=== PATIENT | male | born 1975 | race Caucasian/White ===

== ENCOUNTER 2021-07-13 20:17 | Emergency (ER) | payer OTHER, SELFPAY ==
[2021-07-13 20:21] VITALS: BP 146/91; PULSE 96; RESP 20; TEMP 37.4; O2SAT 96
--- NOTE | 2021-07-13 21:49 | ED.GENADULT ---
HPI - General Adult General Chief complaint: Upper Respiratory Infection Stated complaint: cough, congestion, fever, body aches Time Seen by Provider: 07/13/21 21:21 History of Present Illness HPI narrative: Patient 46-year-old gentleman who presents the emergency department with chief complaint of generalized malaise body aches cough. The patient reports symptoms started Friday patient reports he took a home COVID test that was positive but then took another COVID test that was patient states he continues to feel horrible and states that he is never felt this bad the patient reports no shortness of breath reports he gets a little tired whenever he gets up and walks around. Patient denies vomiting denies diarrhea denies changes in mental status. Related Data Allergies Allergy/AdvReac Type Severity Reaction Status Date / Time No Known Allergies Allergy Verified 07/13/21 20:24 Review of Systems Review of Systems: A 10 system review of systems was completed on the patient and is negative except for what is stated in the HPI. Nursing and ancillary documentation was reviewed. PMFSH Comments Patient denies significant past medical history Social history the patient vapes Exam Narrative: GENERAL: Well-appearing, well-nourished, and in no acute distress. HEAD: Normocephalic, atraumatic. EYES: PERRLA and EOMI. ENT: Nares clear, no rhinorrhea or epistaxis. Mucous membranes moist. NECK: Supple. CHEST: Clear to auscultation. No respiratory distress. HEART: Regular rate and rhythm. No murmur heard. Normal peripheral pulses. ABDOMEN: Soft, nontender, nondistended, normal active bowel sounds. EXTREMITIES: Normal range of motion. No edema. SKIN: Warm, dry, no rash. NEURO: No focal deficits. Alert and oriented x3. PSYCH: Normal mood and affect. Course Course Emergency Course: The patient was ambulated in the emergency department showed no signs of hypoxia or tachypnea room air saturation stayed above 95%. Vital Signs Vital signs: Vital Signs Temperature 37.4 C 07/13/21 20: Pulse Rate 96 07/13/21 20:21 Respiratory Rate 20 07/13/21 20:21 Blood Pressure 146/91 H 07/13/21 20:21 Pulse Oximetry 96 07/13/21 20:21 Temperature 37.4 C 07/13/21 20:21 Pulse Rate 96 07/13/21 20:21 Respiratory Rate 20 07/13/21 20:21 Blood Pressure 146/91 H 07/13/21 20:21 Pulse Oximetry 96 07/13/21 20:21 Medical Decision Making Vital Signs Vital Signs: Vital Signs Temperature 37.4 C 07/13/21 20:21 Pulse Rate 96 07/13/21 20:21 Respiratory Rate 20 07/13/21 20:21 Blood Pressure 146/91 H 07/13/21 20:21 Pulse Oximetry 96 07/13/21 20:21 Temperature 37.4 C 07/13/21 20:21 Pulse Rate 96 07/13/21 20:21 Respiratory Rate 20 07/13/21 20:21 Blood Pressure 146/91 H 07/13/21 20:21 Pulse Oximetry 96 07/13/21 20:21 Discharge Plan Discharge Clinical Impression: Viral infection Upper respiratory infection Qualifiers: URI type: unspecified viral URI Qualified Code(s): J06.9 - Acute upper respiratory infection, unspecified Patient Disposition: Home, Self-Care Condition: Stable Instructions: Antibiotic Form, Upper Respiratory Infection (ED), Viral Syndrome (ED), COVID-19 (Coronavirus Disease 2019) (ED) Additional Instructions: A COVID-19 PCR test was sent today this will take several days to come back. It is presumed most likely were positive for COVID-19 since you have had a positive home test. Prescriptions: New benzonatate 200 mg capsule 200 mg PO TID PRN (Reason: cough) Qty: 21 RF: 0 albuterol sulfate 90 mcg/actuation HFA aerosol inhaler 2 puff inhalation QID PRN (Reason: shortness of breath or wheezing) Qty: 8.5 RF: 0 Follow-up/Referrals: PHYSICIAN,ROD PULLER AND COILER [Primary Care Provider] - Pavan García MD [Physician] - Time of Disposition: 21:52
[2021-07-13] MEDS: BENZONATATE 100 MG CAPSULE 200 MG PO (22:15)
[2021-07-13] MEDS: KETOROLAC 30 MG/ML VIAL (*BKC) IM (22:16)
[2021-07-13 22:18] VITALS: BP 124/91; PULSE 90; RESP 20; TEMP 37.4; O2SAT 97
[2021-07-14 23:20] LABS: SARS-CoV-2 RNA PCR Positive
== END 2021-07-13 22:31 | disposition home or self-care (01) ==
PROVIDERS: Emergency Provider Emergency Medicine
DX: U07.1 COVID-19 (principal); J06.9 Acute upper respiratory infection, unspecified; F17.290 Nicotine dependence, other tobacco product, uncomplicated
CPT/HCPCS: 96372; 99283; A9270; C9803; J1885; U0003; U0005

== ENCOUNTER 2021-07-20 23:48 | Inpatient (IN) | payer OTHER, SELFPAY ==
--- NOTE | ~2021-07-20 | XR_ITS ---
XR chest 1V portable DATE: 07/21/2021 00:23 INDICATION: Dyspnea. Covid infection. TECHNIQUE: Portable AP chest on 07/21/2021 at 0015 hours COMPARISON: None FINDINGS: There are patchy pulmonary infiltrates scattered throughout both lungs, consistent with vitaliy ateral effusions Covid pneumonia. Heart size appears normal. No pleural effusion or pneumothorax. IMPRESSION: Extensive patchy diffuse bilateral pulmonary infiltrates, consistent with Covid pneumonia Reviewed, dictated and finalized at location A. INE WASHER IMPRESSION: Extensive patchy diffuse bilateral pulmonary infiltrates, consisten t with Covid pneumonia
--- NOTE | ~2021-07-20 | CT_ITS ---
EXAMINATION: CTA chest PE protocol DATE: 07/22/2021 09:49 INDICATION: Hypoxia. Covid-positive. TECHNIQUE: Computed tomography angiography (CTA) of the chest was performed with 100 mL Omnipaque-350 intravenous contrast timed to evaluate the pulmonary arteries. Coronal maximum intensity projection 3D-reconstructions were created by the technologist. Automated exposure control and iterative reconst ruction technique were employed. Exam dose: 1061.30 mGy-cm total exam DLP. COMPARISON: 07/21/2021 CT pulmonary scan 07/21/2021 portable AP chest FINDINGS: There is diagnostic contrast enhancement of the pulmonary arteries and no evidence of pulmo nary embolism. No thoracic aortic aneurysm or dissection. Normal heart size. No pericardial or pleural effusion. There is minimal hilar and mediastinal lymph node prominence, likely reactive. There are extensive pa tchy consolidating infiltrates scattered throughout both lungs, increased since 07/21/2021. IMPRESSION: Increased bilateral pulmonary infiltrates since 07/21/2021 No evidence of pulmonary embolism Reviewed, dictated and finalized at Location [facility]. Reviewed, dictated and finalized at location A. T RAIL OPERATOR
--- NOTE | ~2021-07-20 | CT_ITS ---
EXAMINATION: CTA chest PE protocol DATE: 07/21/2021 01:34 INDICATION: Dyspnea, cough. Covid positive. TECHNIQUE: Computed tomography angiography (CTA) of the chest was performed with 100 mL Omnipaque-350 intravenous contrast timed to evaluate the pulmonary arteries. Coronal maximum intensity projection 3D-reconstructions were created by the technologist. Automated exposure control and iterative reconst ruction technique were employed. Exam dose: 1073.32 mGy-cm total exam DLP. COMPARISON: 07/21/2021 portable AP chest FINDINGS: There is diagnostic contrast enhancement of pulmonary embolism evidence of pulmonary emboli sm. No thoracic aortic aneurysm. Mild hilar and mediastinal lymph node prominence is likely reactive, secondary to extensive patchy in filtrates throughout both lungs, which are likely due to Covid pneumonia. Diffuse hepatic steatosis. Splenomegaly. Mild old compression fracture deformity of the superior vertebral endplate of T6. No suspicious osteolytic or osteoblastic lesions. IMPRESSION: Extensive bilateral pulmonary infiltrates throughout the lungs, likely due to Covid pneu monia No evidence of pulmonary embolism Hepatic steatosis, splenomegaly Reviewed, dictated and finalized at [facility]. Reviewed, dictated and finalized at location A. DRIVER ENGINEER IMPRESSION: Extensive bilateral pulmonary infiltrates throughout the lungs, li kj due to Covid pneumonia No evidence of pulmonary embolism Hepatic steatosis, splenomegaly
[2021-07-20 23:52] VITALS: BP 135/93; PULSE 107; RESP 17; TEMP 36.9; O2SAT 85
[2021-07-20 23:58] VITALS: O2SAT 91
[2021-07-21] VITALS (28 sets, daily range): BP systolic 103–143; BP diastolic 63–111; PULSE 62–106; RESP 17–29; TEMP 35.5–36.7; O2SAT 81–99; BMI 39.4
--- NOTE | 2021-07-21 00:08 | ECG_ITS ---
Measurements Intervals Mayer Rate: 100 P: 28 IA: 160 QRS: 10 QRSD: 102 T: 31 QT: 313 QTc: 404 Interpretive Statements SINUS TACHYCARDIA POOR R WAVE PROGRESSION, ANTERIOR LEADS CONSIDER INFERIOR INFARCT, AGE INDETERMINATE BASELINE ARTIFACT- I, II, III, AVR, AVF, V1-V6 ABNORMAL ECG Electronically Signed On 07-23-2021 7:56:00 URBAN DESIGN CONSULTANT by Kenji Mccabe D.O.
[2021-07-21 00:18] LABS: Basophils Percent Auto 0.4 % (0.2-1.2); Eosinophils Percent Auto 0.2 % (0-4.4); Hematocrit 42.5 % (42.0-52.0); Hemoglobin 14.7 g/dL (14.0-18.0); Immature Granulocyte Absolute 0.07 K/mm3 (0.00-0.031); Immature Granulocyte Percent A 1.3 % (0-0.5); Lymphocytes Absolute Auto 0.47 K/mm3 (0.9-3.2); Lymphocytes Percent Auto 8.7 % (18.3-44.2); Mean Corpuscular HGB Conc 34.6 g/dl (32-36); Mean Corpuscular Hemoglobin 31.9 pg (26-34); Mean Corpuscular Volume 92.2 fl (80-100); Mean Platelet Volume 9.6 fl (7.4-10.4); Monocytes Absolute Auto 0.5 K/mm3 (0.1-0.6); Monocytes Percent Auto 8.4 % (2.6-8.5); Neutrophils Absolute Auto 4.4 K/mm3 (1.3-6.7); Platelet Count Result 206 k/mm3 (150-375); Red Blood Count 4.61 M/mm3 (4.6-6.20); Red Cell Distribution Width 11.9 % (11.5-14.5); White Blood Count 5.4 K/mm3 (4.5-10.0)
--- NOTE | 2021-07-21 00:30 | ED.SOB ---
HPI - SOB/Dyspnea General Chief Complaint: Shortness of Breath/Dyspnea Stated Complaint: COVID+, sob Time Seen by Provider: 07/20/21 23:58 Source: RN notes reviewed History of Present Illness HPI Narrative: Patient presents emergency department from home for shortness of breath. Patient states he is positive for COVID-19 testing positive on the 14th states he has been progressively more short of breath associated with a cough is nonproductive states he is also had a decreased appetite is not anything over the past 2 days he denies any measured fevers chest pain abdominal pain nausea vomiting or any other symptoms. Patient states he was not vaccinated. Patient noted to be hypoxic on arrival to the ED and placed on 3 L nasal cannula Related Data Allergies Allergy/AdvReac Type Severity Reaction Status Date / Time No Known Allergies Allergy Verified 07/20/21 23:59 Review of Systems Review of Systems: Gen.: Denies fevers or chills ENT: Denies congestion Respiratory: See HPI CV: Denies chest pain or palpitations GI: Denies abdominal pain nausea, emesis or diarrhea Musculoskeletal: Denies back pain or muscle pain Neuro: Denies numbness, tingling, weakness or focal weakness Skin: Denies rash Except as documented, all other systems reviewed and negative PMFSH Past Medical History Medical History (Updated 07/21/21 @ 02:18 by Radu Odonnell DO) Patient denies significant medical history Social History Social History (Updated 07/21/21 @ 00:31 by Radu Odonnell DO) Smoking status: Never smoker Exam Narrative: APPEARANCE: No acute distress, nontoxic, resting in bed EYES: EOMI HEENT: Normocephalic, atraumatic, RESPIRATORY: No respiratory distress coarse breath sounds to the bilateral lung espinoza CARDIOVASCULAR: Regular rate and rhythm without murmurs rubs or gallops. ABDOMINAL: Soft, nontender, nondistended, no rebound or guarding MUSCULOSKELETAl: Moves all extremities. No clubbing, cyanosis or edema. NEURO: Awake and alert. Following commands, speech normal, no focal deficits SKIN:: Warm, dry. No rashes lesions or abrasions PSYCHIATRIC: Normal affect/mood, Course Course Emergency Course: Discussed with Dr. Donnelly agrees with admission. Request patient started on remdesivir Discussed with patient and family results of workup and diagnosis. Discussed need for admission. Patient and family understand and agree to current treatment plan Vital Signs Vital signs: Vital Signs Temperature 98.4 F 07/20/21 23:52 Pulse Rate 107 H 07/20/21 23:52 Respiratory Rate 17 07/20/21 23:52 Blood Pressure 135/93 H 07/20/21 23:52 Pulse Oximetry 85 L 07/20/21 23:52 Temperature 98.4 F 07/20/21 23:52 Pulse Rate 100 07/21/21 00:46 Respiratory Rate 25 H 07/21/21 00:46 Blood Pressure 136/111 H 07/21/21 00:46 Pulse Oximetry 91 07/20/21 23:58 MDM - SOB/Dyspnea Lab Data Result diagrams: 07/21/21 00:09 07/21/21 00:09 Labs: Lab Results 07/21/21 07/21/21 07/21/21 Range/Units 00:09 00:09 00:09 WBC 5.4 (4.5-10.0) K/mm3 RBC 4.61 (4.6-6.20) M/mm3 Hgb 14.7 (14.0-18.0) g/dL Hct 42.5 (42.0-52.0) % MCV 92.2 (80-100) fl MCH 31.9 (26-34) pg MCHC 34.6 (32-36) g/dl RDW 11.9 (11.5-14.5) % Plt Count 206 (150-375) k/mm3 MPV 9.6 (7.4-10.4) fl Immature Gran % (Auto) 1.3 H (0-0.5) % Neut % (Auto) 81.0 H (45.5-73.1) % Lymph % (Auto) 8.7 L (18.3-44.2) % Daggett % (Auto) 8.4 (2.6-8.5) % Eos % (Auto) 0.2 (0-4.4) % Baso % (Auto) 0.4 (0.2-1.2) % Lymph # (Auto) 0.47 L (0.9-3.2) K/mm3 Daggett # (Auto) 0.5 (0.1-0.6) K/mm3 Eos # (Auto) 0.0 (0-0.3) K/mm3 Baso # (Auto) 0.0 (0.0-0.1) K/mm3 Abs Immat Gran (auto) 0.07 H (0.00-0.031) K/mm3 Absolute Neuts (auto) 4.4 (1.3-6.7) K/mm3 Absolute Nucleated RBC 0.0 (0.0-0.012) K/mm3 Nucleated RBC % 0.0 (0.0-0.2) % PT 13.5 (11.1-14.7)
[2021-07-21 00:32] LABS: Prothrombin Time 13.5 Seconds (11.1-14.7)
[2021-07-21 00:33] LABS: Partial Thromboplastin Time 29.6 SECONDS (22.3-36.8)
[2021-07-21 00:35] LABS: D Dimer 0.71 ug/mL (<0.48)
[2021-07-21] MEDS: SODIUM CHLORIDE 0.9% IV 1,000 ML 999 ML IV CONT (00:38)
[2021-07-21 00:45] LABS: Alanine Aminotransferase 63 U/L (4-50); Alkaline Phosphatase 35 U/L (38-126); Anion Gap 10 mmol/L (8-16); Aspartate Amino Transferase 92 U/L (17-59); Bilirubin,Total 1.1 mg/dL (0.2-1.3); Blood Urea Nitrogen 25 mg/dL (9-20); CRP 5.2 mg/dL (<1.0); Calcium 8.3 mg/dL (8.4-10.2); Carbon Dioxide 26 mmol/L (22-30); Chloride 98 mmol/L (98-107); Estimated Glomerular Filt Rate 51; Glucose 117 mg/dL (65-110); Lactate Dehydrogenase 972 U/L (313-618); Potassium 3.9 mmol/L (3.4-5.0); Sodium 134 mmol/L (137-145)
[2021-07-21] MEDS: ALBUTEROL SULFATE (*SP) INHALER 1 PUFF (00:59)
[2021-07-21] MEDS: ALBUTEROL SULFATE (*SP) AEROSOL 1 PUFF 2 PUFF INHALATION (00:59)
[2021-07-21] MEDS: REMDESIVIR 200 MG/NS 250 ML 200 MG/250 ML BAG 250 MG IVPB (04:10)
--- NOTE | 2021-07-21 04:27 | PC.NURSE ---
This patient, Cristhian Vallejo III, was admitted to [facility] Surg Room 301-01. Patient/family oriented to hospital policies and general routines including ID bracelet, bed and alarms, visiting hours, pain management, procedures, bathroom and other care routines, personal items, smoking policy, room service/diet, and visiting hours. Information on how to activate the Rapid Response Team has been discussed. Patient/Family are encouraged to report perceived risks to care and to ask questions if they do not understand what they are told or what they should do.
[2021-07-21] MEDS: ENOXAPARIN 40 MG/0.4 ML SYRINGE SUB-Q (09:30)
--- NOTE | 2021-07-21 09:50 | PM.IMHP ---
H&P: HPI History of Present Illness Date/Time: 07/21/21 09:50 Chief Complaint: Shortness of Breath Narrative: Date of service: 07/21/2021 Cristhian Vallejo III is a 46-year-old male with a history of JULIUS, currently untreated, and GERD who presented to the emergency department on 07/21/2021 with complaints of shortness of breath ongoing for 1 week stating ?it is hard for me to breathe.? At home over 10 days ago he had been feeling general malaise and decided to go home COVID test which was positive. On 07/13/2019 to he began feeling much worse and proceeded to the emergency department for evaluation. At that time he had a positive COVID PCR test. He was not hypoxic at that time was sent home with albuterol inhaler and antitussives. He was not able to fill his inhaler for several days due to the cost. When he eventually did feel this he did not find it to be very helpful. He had continued to decline with increased shortness of breath on lesser and lesser exertion to the point where he could not do any of his normal task and was laying in bed and ?sleeping all day.? He decided to seek emergency care again due to his increased shortness of breath, stating that his nagged him until he came in. On presentation to the emergency department, he was mildly tachypneic, his blood pressure was elevated, he was afebrile, CBC unremarkable, BMP with elevated BUN and creatinine, CTA showed extensive bilateral pulmonary infiltrates throughout the bilateral lungs with no evidence of PE. At this time his main complaint is persistent shortness of breath. He also endorses a cough that he cannot describe reports that is nonproductive approved he has had very poor appetite, stating that nothing is appealing to him and he is had fairly anything to eat over the past 2 weeks. Review of Systems Review of Systems: All systems reviewed with pertinent positives and negatives as per HPI. Additionally, patient denies nausea or vomiting. He endorses subjective fevers at home and states that he took his temperature it was 99.8?. He denies chills. His sense of taste and smell is intact. He denies feeling weak. No dizziness or lightheadedness. Denies dysuria or hematuria. He had 1-2 episodes of diarrhea earlier in the week but this has resolved. He denies chest pain. Denies headaches or body aches. He reports that his and 2 sons have also tested positive for COVID. He has not been vaccinated for COVID-19. [facility] Past Medical History Medical History (Updated 07/21/21 @ 09:58 by Annetta Flynn PA-C) GERD (gastroesophageal reflux disease) JULIUS (obstructive sleep apnea) Patient denies significant medical history Family History Family History (Updated 07/21/21 @ 09:58 by Annetta Flynn PA-C) Father Diabetes mellitus Social History Social History (Updated 07/21/21 @ 10:01 by Annetta Flynn PA-C) Social History: The patient lives at home with his and 2 sons. He is independent in his daily activities. 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 He recently established care with a PCP though he cannot recall with whom. Dr. Lofton is listed as his PCP. He designates his , Emerita, as his surrogate decision maker. He would like to be a full code. Smoking packs per day: 1 Smoking cigarettes per day: 20.0 Years smoked: 17 Smoking pack-years: 17.00 Smoking status: Former smoker Tobacco type: cigarettes Alcohol use details: 1 alcoholic drink every 6 months Substance use: never Substance use type: does not use Living arrangements: with family Spiritual care concerns: No Meds Home Medications and Allergies Home Medications Medication Instructions Recorded Confirmed Type albuterol sulfate 2 puff INHALATION QID PRN #8.5 g 07/13/21 07/21/21 Rx benzonatate 200 mg PO TID PRN #21 cap 07/13/21 07/21/21 Rx Allergies Allergy/AdvReac Type Severity Reaction Status Date / Time No Known Allergies Allergy Verified
[2021-07-21] MEDS: guaiFENesin 12 HR 600 MG TABCR PO ×2 (14:36→20:52)
[2021-07-21] MEDS: FAMOTIDINE 20 MG TABLET PO ×2 (14:36→20:52)
[2021-07-21 23:35] LABS: Alveolar/Arterial O2 Gradient 630.4 mmHg; Base Excess ABG 2.1 mEq/l (+/-2.0); Carboxyhemoglobin 0.1 % THb (0-2.0); Fractional Inspired Oxygen 100 %; HCO3 ABG 25.5 mEq/l (22.0-26.0); Methemoglobin ABG 0.2 %THb (0-1.5); PCO2 ABG 36.1 mmHg (35.0-45.0); PO2 FiO2 Ratio Arterial Blood 0.47 %; Reduced Hemoglobin 17.8 %THb (0-5.0); Total Hemoglobin 13.9 g/dL (12.0-18.0); pH ABG 7.467 (7.350-7.450)
[2021-07-21 23:40] LABS: PO2 ABG 46.5 mmHg (80.0-100.0)
[2021-07-21 23:41] LABS: Device HIGH FLOW NASAL CANN; Modified Allen's Test Pass; Oxygen Saturation ABG 85.3 % (95.0-100.0); Oxyhemoglobin 81.9 % THb (90.0-100.0); Site Drawn RIGHT RADIAL
[2021-07-22] VITALS (21 sets, daily range): BP systolic 93–129; BP diastolic 45–80; PULSE 53–83; RESP 18–30; TEMP 36.5–36.9; O2SAT 91–97
[2021-07-22] MEDS: BARICITINIB 2 MG TABLET PO ×3 (01:04→13:34)
--- NOTE | 2021-07-22 01:37 | PC.NURSE ---
This patient, Cristhian Vallejo III, was received from [facility] on 07/22/21 at 0033. Patient oriented to unit policies and routines
--- NOTE | 2021-07-22 01:39 | PC.NURSE ---
Emerita Vallejo () notified of patient's admission to the IMU. I explained the current Airvo settings of 60L with 90%. We also discussed oxygen saturation and what it means. Patient is currently 95% on these settings. All questions answered. I advised her that I will call her if her 's condition deteriorates through the night. We also discussed other options including adding a non-rebreather, BIPAP, and intubation should his condition get worse. states understanding.
--- NOTE | 2021-07-22 01:45 | PC.NURSE ---
I called Aruna Vallejo (Mother) and updated her with the same things Emerita () and I discussed. She states understanding. I added her to the contact list and advised her we will call her should her son's condition deteriorate.
[2021-07-22 06:35] LABS: INR 1.1; Prothrombin Time 14.1 Seconds (11.1-14.7)
[2021-07-22 06:39] LABS: Alanine Aminotransferase 62 U/L (4-50); Albumin Level 3.6 g/dL (3.5-5.1); Alkaline Phosphatase 30 U/L (38-126); Anion Gap 6 mmol/L (8-16); Aspartate Amino Transferase 64 U/L (17-59); Bilirubin,Total 0.9 mg/dL (0.2-1.3); Blood Urea Nitrogen 25 mg/dL (9-20); Calcium 8.1 mg/dL (8.4-10.2); Carbon Dioxide 28 mmol/L (22-30); Chloride 102 mmol/L (98-107); Estimated CRCL calculation 110 ml/min; Estimated Glomerular Filt Rate > 60; Glucose 138 mg/dL (65-110); Potassium 4.5 mmol/L (3.4-5.0); Sodium 136 mmol/L (137-145)
[2021-07-22] MEDS: ENOXAPARIN 40 MG/0.4 ML SYRINGE SUB-Q (10:03)
[2021-07-22] MEDS: guaiFENesin 12 HR 600 MG TABCR PO ×2 (10:04→20:40)
[2021-07-22] MEDS: FAMOTIDINE 20 MG TABLET PO ×2 (10:04→20:40)
[2021-07-22 10:10] LABS: Basophils Percent Auto 0.2 % (0.2-1.2); Hematocrit 40.6 % (42.0-52.0); Hemoglobin 13.5 g/dL (14.0-18.0); Immature Granulocyte Absolute 0.05 K/mm3 (0.00-0.031); Immature Granulocyte Percent A 1.2 % (0-0.5); Lymphocytes Absolute Auto 0.64 K/mm3 (0.9-3.2); Lymphocytes Percent Auto 15.6 % (18.3-44.2); Mean Corpuscular HGB Conc 33.3 g/dl (32-36); Mean Corpuscular Hemoglobin 31.3 pg (26-34); Mean Platelet Volume 9.5 fl (7.4-10.4); Monocytes Absolute Auto 0.3 K/mm3 (0.1-0.6); Monocytes Percent Auto 7.8 % (2.6-8.5); Neutrophils Absolute Auto 3.1 K/mm3 (1.3-6.7); Neutrophils Percent Auto 75.2 % (45.5-73.1); Platelet Count Result 228 k/mm3 (150-375); Red Blood Count 4.32 M/mm3 (4.6-6.20); Red Cell Distribution Width 11.9 % (11.5-14.5); White Blood Count 4.1 K/mm3 (4.5-10.0)
[2021-07-22 10:34] LABS: CRP 3.4 mg/dL (<1.0)
[2021-07-22 11:59] LABS: Lactate Dehydrogenase 822 U/L (313-618)
--- NOTE | 2021-07-22 12:24 | PM.IMPN ---
Progress Note: A&P Assessment and Plan (1) Acute respiratory failure with hypoxia: Code(s): J96.01 - Acute respiratory failure with hypoxia Status: Acute Assessment and Plan: Secondary to COVID-19. PE ruled out on CTA. He had significantly increased oxygen demand overnight. Now requiring Airvo 60 L/min Goal O2 sats 90% or above. Wean to goal During my encounter today while the patient was resting, talking, and shifting around in bed, his sats remained between 88-96%. Repeat CTA given acute change which showed increased bilateral pulmonary infiltrates, negative for PE Patient is agreeable to intubation should this become required (2) COVID-19: Code(s): U07.1 - COVID-19 Status: Acute Assessment and Plan: Symptom onset 07/09/2021 with positive PCR on 07/13/2021. CXR and CTA with extensive bilateral infiltrates Continue isolation precautions Continue dexamethasone and remdesivir #2 today. Monitor LFTs. Given increased oxygen requirements, he has been started on baricitinib 4 mg daily for up to 14 days Supportive care to include bronchodilators, expectorants, incentive spirometry, antipyretics Supplemental O2 as above Monitor inflammatory markers, trending down Patient has not been vaccinated for COVID-19. States he would now like to get vaccinated. Follow-up outpatient for vaccine in 90 days (3) Acute renal insufficiency: Code(s): N28.9 - Disorder of kidney and ureter, unspecified Status: Acute Assessment and Plan: Likely pre renal given his poor oral intake Creatinine has normalized at 1.2 today following IV fluids. Continue to encourage oral intake No prior labs to establish baseline Monitor renal function closely. Renally dose medications and avoid nephrotoxins (4) JULIUS (obstructive sleep apnea): Code(s): G47.33 - Obstructive sleep apnea (adult) (pediatric) Status: Acute Assessment and Plan: History of untreated JULIUS He is scheduled for a sleep study this upcoming week to obtain home CPAP Continue outpatient follow up Subjective Date/time seen: 07/22/21 12:24 Interval history: Date of service: 07/22/2021 Cristhian Vallejo III is a 46-year-old male with a history of JULIUS, currently untreated, and GERD who is seen in follow-up for COVID-19 pneumonia. He feels okay today. He did state he feels significantly better than he had been feeling at home. He denies any significant shortness of breath. He does have cough productive of yellowish sputum. He no chest pain. He has been able to get up and transfer to the bedside commode and he denies significant VIEIRA. Slept well last night. Denies nausea, vomiting, fever, chills. No abdominal pain. He is very eager to return home. I explained to him that he has persistently increased oxygen requirements and that needs to be better controlled before he can go home. He understands but continues to reiterate his desire to go home. Review of Systems Review of Systems: All systems reviewed & are unremarkable except as noted in HPI and below Exam Narrative: Mr. Vallejo is a well-nourished, well-appearing 46-year-old male who is lying semi recumbent in bed. He appears comfortable and is in NARD. Neuro: awake, alert and oriented x4, speech clear, no focal neuro deficits noted HEENMT: normocephalic, atraumatic, EOMI, sclerae anicteric Neck: supple, no lymphadenopathy Respiratory: Diminished breath sounds bilaterally without crackles, rhonchi, or wheezes, nonlabored breathing Cardio: regular rate, regular rhythm with S1-S2 Abdomen: nondistended, normoactive bowel sounds, soft, nontender to palpation Extremities: no edema, erythema, or tenderness to palpation, DP pulses 2+ bilaterally Skin: no rashes or lesions, warm and dry Psych: appropriate mood and affect, judgment and insight intact Objective Data Vital Signs Vital Signs: Vital Signs - 24 hr 07/21/21 15:47 07/21/21 20:
[2021-07-22] MEDS: REMDESIVIR 100 MG/NS 250 ML 100 MG/250 ML BAG 250 MG IVPB (13:33)
[2021-07-23] VITALS (18 sets, daily range): BP systolic 89–117; BP diastolic 51–84; PULSE 50–65; RESP 18–24; TEMP 36.1–37.1; O2SAT 92–100
[2021-07-23 05:51] LABS: Basophils Percent Auto 0.2 % (0.2-1.2); Eosinophils Percent Auto 0.4 % (0-4.4); Hematocrit 37.7 % (42.0-52.0); Hemoglobin 12.6 g/dL (14.0-18.0); Immature Granulocyte Absolute 0.09 K/mm3 (0.00-0.031); Immature Granulocyte Percent A 1.6 % (0-0.5); Lymphocytes Absolute Auto 0.94 K/mm3 (0.9-3.2); Lymphocytes Percent Auto 17.1 % (18.3-44.2); Mean Corpuscular HGB Conc 33.4 g/dl (32-36); Mean Corpuscular Hemoglobin 31.3 pg (26-34); Mean Corpuscular Volume 93.8 fl (80-100); Mean Platelet Volume 9.7 fl (7.4-10.4); Monocytes Absolute Auto 0.4 K/mm3 (0.1-0.6); Monocytes Percent Auto 7.3 % (2.6-8.5); Neutrophils Percent Auto 73.4 % (45.5-73.1); Platelet Count Result 215 k/mm3 (150-375); Red Blood Count 4.02 M/mm3 (4.6-6.20); Red Cell Distribution Width 11.8 % (11.5-14.5); White Blood Count 5.5 K/mm3 (4.5-10.0)
[2021-07-23 06:10] LABS: INR 1.1; Prothrombin Time 14.2 Seconds (11.1-14.7)
[2021-07-23 06:13] LABS: Alanine Aminotransferase 59 U/L (4-50); Albumin Level 3.5 g/dL (3.5-5.1); Alkaline Phosphatase 30 U/L (38-126); Anion Gap 6 mmol/L (8-16); Aspartate Amino Transferase 56 U/L (17-59); Bilirubin,Total 0.7 mg/dL (0.2-1.3); Blood Urea Nitrogen 28 mg/dL (9-20); CRP 1.8 mg/dL (<1.0); Calcium 7.9 mg/dL (8.4-10.2); Carbon Dioxide 30 mmol/L (22-30); Chloride 102 mmol/L (98-107); Estimated CRCL calculation 110 ml/min; Estimated Glomerular Filt Rate > 60; Glucose 103 mg/dL (65-110); Potassium 3.8 mmol/L (3.4-5.0); Sodium 138 mmol/L (137-145)
[2021-07-23] MEDS: ENOXAPARIN 40 MG/0.4 ML SYRINGE SUB-Q (09:11)
[2021-07-23] MEDS: guaiFENesin 12 HR 600 MG TABCR PO ×2 (09:11→20:07)
[2021-07-23] MEDS: FAMOTIDINE 20 MG TABLET PO ×2 (09:11→20:07)
[2021-07-23] MEDS: REMDESIVIR 100 MG/NS 250 ML 100 MG/250 ML BAG 250 MG IVPB (11:29)
[2021-07-23] MEDS: BARICITINIB 2 MG TABLET 4 MG PO (11:30)
--- NOTE | 2021-07-23 17:10 | PM.IMPN ---
Progress Note: A&P Assessment and Plan (1) Acute respiratory failure with hypoxia: Code(s): J96.01 - Acute respiratory failure with hypoxia Status: Acute Assessment and Plan: Secondary to COVID-19. PE ruled out on CTA. Currently requriing 60 L/min on Airvo. Maintaining adequate O2 sats. Goal O2 sats 90% or above. Wean to goal CT showed increased bilateral pulmonary infiltrates Patient is agreeable to intubation should this become required (2) COVID-19: Code(s): U07.1 - COVID-19 Status: Acute Assessment and Plan: Symptom onset 07/09/2021 with positive PCR on 07/13/2021. CXR and CTA with extensive bilateral infiltrates Continue isolation precautions Continue dexamethasone and remdesivir #3 today. Monitor LFTs. Started on Baricitinib 07/22 due to increased O2 requirements. Continue 4 mg daily for up to 14 days Supportive care to include bronchodilators, expectorants, incentive spirometry, antipyretics Supplemental O2 as above Monitor inflammatory markers intermittently Patient has not been vaccinated for COVID-19. States he would now like to get vaccinated. Follow-up outpatient for vaccine in 90 days (3) Acute renal insufficiency: Code(s): N28.9 - Disorder of kidney and ureter, unspecified Status: Acute Assessment and Plan: Likely pre renal given his poor oral intake Creatinine normalized at 1.2 following IV fluids. IV fluids discontinued. Encourage PO intake No prior labs to establish baseline Monitor renal function closely. Renally dose medications and avoid nephrotoxins (4) JULIUS (obstructive sleep apnea): Code(s): G47.33 - Obstructive sleep apnea (adult) (pediatric) Status: Acute Assessment and Plan: History of untreated JULIUS He is scheduled for a sleep study this upcoming week to obtain home CPAP which will now be rescheduled given acute illness Continue outpatient follow up Subjective Date/time seen: 07/23/21 17:10 Interval history: Date of service: 07/23/2021 Cristhian Vallejo III is a 46-year-old male with a history of JULIUS, currently untreated, and GERD who is seen in follow-up for COVID-19 pneumonia. He feels well today. He reports he is breathing well. Denies VIEIRA, although he has not been having much activity today. He reports cough productive thick, yellow sputum. Denies nausea,, fever, chills. No dizziness or lightheadedness. He reports regular bowel movements. Denies urinary symptoms. No chest pain or palpitations. He reports he has been sleeping quite a bit but states he is forcing himself to sleep because each time he sleeps he is closer to going home. He does not feel particularly fatigued. Review of Systems Review of Systems: All systems reviewed & are unremarkable except as noted in HPI and below Exam Narrative: Mr. Vallejo is a well-nourished, well-appearing 46-year-old male who is lying semi recumbent in bed. He appears comfortable and is in NARD. Neuro: awake, alert and oriented x4, speech clear, no focal neuro deficits noted HEENMT: normocephalic, atraumatic, EOMI, sclerae anicteric Neck: supple, no lymphadenopathy Respiratory: Diminished breath sounds bilaterally, nonlabored breathing Cardio: regular rate, regular rhythm with S1-S2 Abdomen: nondistended, normoactive bowel sounds, soft, nontender to palpation Extremities: no edema, erythema, or tenderness to palpation, DP pulses 2+ bilaterally Skin: no rashes or lesions, warm and dry Psych: appropriate mood and affect, judgment and insight intact Objective Data Vital Signs Vital Signs: Vital Signs - 24 hr 07/22/21 18:00 07/22/21 20:00 07/22/21 20:22 Temperature 97.9 F Pulse Rate 66 70 Respiratory Rate 20 Blood Pressure 125/80 Pulse Oximetry 96 93 07/22/21 21:49 07/23/21 00:00 07/23/21 02:00 Temperature 98.4 F Pulse Rate 66 50 L 58 L Respiratory Rate 24 H Blood Pressure 111/73 Pulse Oximetry 95 0
[2021-07-24] VITALS (14 sets, daily range): BP systolic 90–110; BP diastolic 41–75; PULSE 51–65; RESP 16–20; TEMP 35.9–36.7; O2SAT 92–100
[2021-07-24 08:14] LABS: Basophils Percent Auto 0.5 % (0.2-1.2); Eosinophils Absolute Auto 0.1 K/mm3 (0-0.3); Hematocrit 38.4 % (42.0-52.0); Hemoglobin 12.8 g/dL (14.0-18.0); Immature Granulocyte Absolute 0.26 K/mm3 (0.00-0.031); Immature Granulocyte Percent A 4.2 % (0-0.5); Lymphocytes Absolute Auto 1.15 K/mm3 (0.9-3.2); Lymphocytes Percent Auto 18.8 % (18.3-44.2); Mean Corpuscular HGB Conc 33.3 g/dl (32-36); Mean Corpuscular Hemoglobin 31.6 pg (26-34); Mean Corpuscular Volume 94.8 fl (80-100); Mean Platelet Volume 9.7 fl (7.4-10.4); Monocytes Absolute Auto 0.6 K/mm3 (0.1-0.6); Neutrophils Absolute Auto 4.1 K/mm3 (1.3-6.7); Neutrophils Percent Auto 66.5 % (45.5-73.1); Platelet Count Result 219 k/mm3 (150-375); Red Blood Count 4.05 M/mm3 (4.6-6.20); Red Cell Distribution Width 11.9 % (11.5-14.5); White Blood Count 6.1 K/mm3 (4.5-10.0)
[2021-07-24 08:24] LABS: INR 1.1; Prothrombin Time 13.6 Seconds (11.1-14.7)
[2021-07-24 08:26] LABS: Alanine Aminotransferase 66 U/L (4-50); Albumin Level 3.2 g/dL (3.5-5.1); Alkaline Phosphatase 30 U/L (38-126); Anion Gap 9 mmol/L (8-16); Aspartate Amino Transferase 56 U/L (17-59); Bilirubin,Total 0.5 mg/dL (0.2-1.3); Blood Urea Nitrogen 27 mg/dL (9-20); Calcium 7.7 mg/dL (8.4-10.2); Carbon Dioxide 26 mmol/L (22-30); Chloride 103 mmol/L (98-107); Estimated CRCL calculation 110 ml/min; Estimated Glomerular Filt Rate > 60; Glucose 91 mg/dL (65-110); Potassium 3.9 mmol/L (3.4-5.0); Sodium 138 mmol/L (137-145)
[2021-07-24] MEDS: guaiFENesin 12 HR 600 MG TABCR PO ×2 (10:15→21:03)
[2021-07-24] MEDS: ENOXAPARIN 40 MG/0.4 ML SYRINGE SUB-Q (10:15)
[2021-07-24] MEDS: FAMOTIDINE 20 MG TABLET PO ×2 (10:15→21:03)
[2021-07-24] MEDS: REMDESIVIR 100 MG/NS 250 ML 100 MG/250 ML BAG 250 MG IVPB (10:16)
[2021-07-24] MEDS: BARICITINIB 2 MG TABLET 4 MG PO (10:16)
--- NOTE | 2021-07-24 16:01 | PM.IMPN ---
Progress Note: A&P Assessment and Plan (1) Acute respiratory failure with hypoxia: Code(s): J96.01 - Acute respiratory failure with hypoxia Status: Acute Assessment and Plan: Secondary to COVID-19. PE ruled out on CTA. Currently requriing 60 L/min on Airvo. Maintaining adequate O2 sats. Goal O2 sats 90% or above. Wean to goal CT showed increased bilateral pulmonary infiltrates Patient is agreeable to intubation should this become required (2) COVID-19: Code(s): U07.1 - COVID-19 Status: Acute Assessment and Plan: Symptom onset 07/09/2021 with positive PCR on 07/13/2021. CXR and CTA with extensive bilateral infiltrates Continue isolation precautions Continue dexamethasone and remdesivir #4 today. Monitor LFTs. Started on Baricitinib 07/22 due to increased O2 requirements. Continue 4 mg daily for up to 14 days Supportive care to include bronchodilators, expectorants, incentive spirometry, antipyretics Supplemental O2 as above Monitor inflammatory markers intermittently Patient has not been vaccinated for COVID-19. States he would now like to get vaccinated. Follow-up outpatient for vaccine in 90 days (3) Acute renal insufficiency: Code(s): N28.9 - Disorder of kidney and ureter, unspecified Status: Acute Assessment and Plan: Likely pre renal given his poor oral intake Creatinine normalized at 1.2 following IV fluids. IV fluids discontinued. Encourage PO intake. 1.1 today No prior labs to establish baseline Monitor renal function closely. Renally dose medications and avoid nephrotoxins (4) JULIUS (obstructive sleep apnea): Code(s): G47.33 - Obstructive sleep apnea (adult) (pediatric) Status: Acute Assessment and Plan: History of untreated JULIUS He is scheduled for a sleep study this upcoming week to obtain home CPAP which will now be rescheduled given acute illness Continue outpatient follow up Subjective Date/time seen: 07/24/21 16:01 Interval history: Cristhian Vallejo III is a 46-year-old male with a history of JULIUS, currently untreated, and GERD who is seen in follow-up for COVID-19 pneumonia. Pt states he feels well. Still having productive cough with yellow sputum. No fevers. Denies sob despite still being on airvo. Requesting to be discharged. Very anxious to go home. Review of Systems Review of Systems: General: Denies fevers Eyes: Denies vision changes ENT: Denies nasal congestion or sore throat Respiratory: + cough, denies shortness of breath Cardiovascular: Denies chest pain or lower extremity edema Gastrointestinal: Denies abdominal pain, vomiting, or diarrhea Genitourinary: Denies dysuria Musculoskeletal: Denies back pain Neurological: Denies headache or motor weakness Integumentary: Denies rash Exam Narrative: Mr. Vallejo is a well-nourished, well-appearing 46-year-old male who is lying semi recumbent in bed. He appears comfortable and is in NARD. Neuro: awake, alert and oriented x4, speech clear, no focal neuro deficits noted HEENMT: normocephalic, atraumatic, EOMI, sclerae anicteric Neck: supple, no lymphadenopathy Respiratory: Diminished breath sounds bilaterally, nonlabored breathing, airvo 60 L Cardio: regular rate, regular rhythm with S1-S2 Abdomen: nondistended, normoactive bowel sounds, soft, nontender to palpation Extremities: no edema, erythema, or tenderness to palpation, DP pulses 2+ bilaterally Skin: no rashes or lesions, warm and dry Psych: anxious Objective Data Vital Signs Vital Signs: Vital Signs - 24 hr 07/23/21 18:00 07/23/21 20:00 07/23/21 20:16 Temperature 97.8 F Pulse Rate 60 65 Respiratory Rate 22 H Blood Pressure 100/68 Pulse Oximetry 92 92 07/23/21 22:00 07/23/21 23:14 07/23/21 23:34 Temperature 97.7 F Pulse Rate 60 60 54 L Respiratory Rate 22 H 20 Blood Pressure 117/73 Pulse Oximetry 92 97 07/23/21 23:42 07/24/21 02:00
[2021-07-25] VITALS (14 sets, daily range): BP systolic 101–143; BP diastolic 55–85; PULSE 51–89; RESP 16–26; TEMP 36.2–36.6; O2SAT 94–99
--- NOTE | 2021-07-25 07:39 | PM.IMPN ---
Progress Note: A&P Assessment and Plan (1) Acute respiratory failure with hypoxia: Code(s): J96.01 - Acute respiratory failure with hypoxia Status: Acute Assessment and Plan: Secondary to COVID-19. PE ruled out on CTA. Currently requriing 60 L/min on Airvo. Maintaining adequate O2 sats. Goal O2 sats 90% or above. Wean to goal CT showed increased bilateral pulmonary infiltrates Patient is agreeable to intubation should this become necessary (2) COVID-19: Code(s): U07.1 - COVID-19 Status: Acute Assessment and Plan: Symptom onset 07/09/2021 with positive PCR on 07/13/2021. CXR and CTA with extensive bilateral infiltrates Continue isolation precautions Continue dexamethasone and remdesivir #5 today. Monitor LFTs. Will extend remdesivir for an additional 5 days Started on Baricitinib 07/22 due to increased O2 requirements. Continue 4 mg daily for up to 14 days Supportive care to include bronchodilators, expectorants, incentive spirometry, antipyretics Supplemental O2 as above Monitor inflammatory markers intermittently Patient has not been vaccinated for COVID-19. States he would now like to get vaccinated. Follow-up outpatient for vaccine in 90 days (3) Acute renal insufficiency: Code(s): N28.9 - Disorder of kidney and ureter, unspecified Status: Acute Assessment and Plan: Likely pre renal given his poor oral intake Creatinine normalized at 1.2 following IV fluids. IV fluids discontinued. Encourage PO intake. Cr levels pending this morning No prior labs to establish baseline Monitor renal function closely. Renally dose medications and avoid nephrotoxins (4) JULIUS (obstructive sleep apnea): Code(s): G47.33 - Obstructive sleep apnea (adult) (pediatric) Status: Acute Assessment and Plan: History of untreated JULIUS He is scheduled for a sleep study this upcoming week to obtain home CPAP which will now be rescheduled given acute illness Continue outpatient follow up Subjective Date/time seen: 07/25/21 07:39 Interval history: Date of service: 07/25/2021 Cristhian Vallejo III is a 46-year-old male with a history of JULIUS, currently untreated, and GERD who is seen in follow-up for COVID-19 pneumonia. Patient states he feels well today. He denies shortness of breath despite being on Airvo. Denies cough. Reports overall significant improvement and wants to go home. Discussed he has high oxygen requirements and will need time prior to discharge home. He denies nausea, vomiting, fever, chills, dizziness, lightheadedness. He has been getting up and walking around as much as he is able to while on oxygen. He wants to get up and walk around the halls, I discussed with him is isolation precautions. He has been eating well. Denies chest pain. He reports sleeping well. No additional concerns. Review of Systems Review of Systems: All systems reviewed & are unremarkable except as noted in HPI and below Exam Narrative: Mr. Vallejo is a well-nourished, well-appearing 46-year-old male who is lying semi recumbent in bed. He appears comfortable and is in NARD. Neuro: awake, alert and oriented x4, speech clear, no focal neuro deficits noted HEENMT: normocephalic, atraumatic, EOMI, sclerae anicteric Neck: supple, no lymphadenopathy Respiratory: Diminished breath sounds bilaterally, nonlabored breathing, airvo 60 L Cardio: regular rate, regular rhythm with S1-S2 Abdomen: nondistended, normoactive bowel sounds, soft, nontender to palpation Extremities: no edema, erythema, or tenderness to palpation, DP pulses 2+ bilaterally Skin: no rashes or lesions, warm and dry Psych: Appropriate mood and affect, judgment and insight intact Objective Data Vital Signs Vital Signs: Vital Signs - 24 hr 07/24/21 08:00 07/24/21 08:20 07/24/21 10:00 Temperature 96.7 F L Pulse Rate 54 L 62 Respiratory Rate 16 Blood Pressure 90/41 L Pulse Ox
[2021-07-25 08:12] LABS: Basophils Percent Auto 0.6 % (0.2-1.2); Eosinophils Absolute Auto 0.1 K/mm3 (0-0.3); Eosinophils Percent Auto 1.5 % (0-4.4); Hematocrit 41.2 % (42.0-52.0); Hemoglobin 13.8 g/dL (14.0-18.0); Immature Granulocyte Absolute 0.29 K/mm3 (0.00-0.031); Immature Granulocyte Percent A 4.4 % (0-0.5); Lymphocytes Absolute Auto 1.21 K/mm3 (0.9-3.2); Lymphocytes Percent Auto 18.3 % (18.3-44.2); Mean Corpuscular HGB Conc 33.5 g/dl (32-36); Mean Corpuscular Hemoglobin 32.1 pg (26-34); Mean Corpuscular Volume 95.8 fl (80-100); Mean Platelet Volume 9.6 fl (7.4-10.4); Monocytes Absolute Auto 0.5 K/mm3 (0.1-0.6); Monocytes Percent Auto 7.4 % (2.6-8.5); Neutrophils Absolute Auto 4.5 K/mm3 (1.3-6.7); Neutrophils Percent Auto 67.8 % (45.5-73.1); Platelet Count Result 226 k/mm3 (150-375); White Blood Count 6.6 K/mm3 (4.5-10.0)
[2021-07-25 08:24] LABS: INR 1.1; Prothrombin Time 13.9 Seconds (11.1-14.7)
[2021-07-25 08:32] LABS: Alanine Aminotransferase 91 U/L (4-50); Albumin Level 3.3 g/dL (3.5-5.1); Alkaline Phosphatase 32 U/L (38-126); Anion Gap 6 mmol/L (8-16); Aspartate Amino Transferase 71 U/L (17-59); Bilirubin,Total 0.7 mg/dL (0.2-1.3); Blood Urea Nitrogen 24 mg/dL (9-20); Carbon Dioxide 27 mmol/L (22-30); Chloride 103 mmol/L (98-107); Estimated CRCL calculation 102 ml/min; Estimated Glomerular Filt Rate 60; Glucose 99 mg/dL (65-110); Potassium 4.2 mmol/L (3.4-5.0); Sodium 136 mmol/L (137-145)
[2021-07-25] MEDS: REMDESIVIR 100 MG/NS 250 ML 100 MG/250 ML BAG 250 MG IVPB (09:38)
[2021-07-25] MEDS: guaiFENesin 12 HR 600 MG TABCR PO ×2 (09:43→21:12)
[2021-07-25] MEDS: FAMOTIDINE 20 MG TABLET PO ×2 (09:43→21:12)
[2021-07-25] MEDS: BARICITINIB 2 MG TABLET 4 MG PO (09:43)
[2021-07-25] MEDS: ENOXAPARIN 40 MG/0.4 ML SYRINGE SUB-Q (09:43)
[2021-07-25] MEDS: WATER FOR IRRIGATION, STERILE 1,000 ML BOTTLE 1000 ML (14:15)
[2021-07-26] VITALS (11 sets, daily range): BP systolic 105–132; BP diastolic 60–75; PULSE 63–84; RESP 18–20; TEMP 35.8–36.4; O2SAT 91–97
[2021-07-26 09:50] LABS: Basophils Percent Auto 0.6 % (0.2-1.2); Eosinophils Absolute Auto 0.1 K/mm3 (0-0.3); Eosinophils Percent Auto 1.1 % (0-4.4); Hematocrit 40.6 % (42.0-52.0); Hemoglobin 13.8 g/dL (14.0-18.0); Immature Granulocyte Absolute 0.31 K/mm3 (0.00-0.031); Lymphocytes Absolute Auto 1.18 K/mm3 (0.9-3.2); Lymphocytes Percent Auto 19.1 % (18.3-44.2); Mean Corpuscular Volume 94.2 fl (80-100); Mean Platelet Volume 9.6 fl (7.4-10.4); Monocytes Absolute Auto 0.3 K/mm3 (0.1-0.6); Monocytes Percent Auto 4.7 % (2.6-8.5); Neutrophils Absolute Auto 4.3 K/mm3 (1.3-6.7); Neutrophils Percent Auto 69.5 % (45.5-73.1); Platelet Count Result 233 k/mm3 (150-375); Red Blood Count 4.31 M/mm3 (4.6-6.20); White Blood Count 6.2 K/mm3 (4.5-10.0)
[2021-07-26] MEDS: guaiFENesin 12 HR 600 MG TABCR PO ×2 (10:13→20:19)
[2021-07-26] MEDS: ENOXAPARIN 40 MG/0.4 ML SYRINGE SUB-Q (10:13)
[2021-07-26] MEDS: BARICITINIB 2 MG TABLET 4 MG PO (10:13)
[2021-07-26] MEDS: FAMOTIDINE 20 MG TABLET PO ×2 (10:13→20:19)
[2021-07-26] MEDS: ACETAMINOPHEN 325 MG TABLET 650 MG PO (10:18)
[2021-07-26 10:20] LABS: Alanine Aminotransferase 103 U/L (4-50); Albumin Level 3.4 g/dL (3.5-5.1); Alkaline Phosphatase 33 U/L (38-126); Anion Gap 7 mmol/L (8-16); Aspartate Amino Transferase 68 U/L (17-59); Bilirubin,Total 0.6 mg/dL (0.2-1.3); Blood Urea Nitrogen 25 mg/dL (9-20); Calcium 8.3 mg/dL (8.4-10.2); Carbon Dioxide 28 mmol/L (22-30); Chloride 103 mmol/L (98-107); Estimated CRCL calculation 102 ml/min; Estimated Glomerular Filt Rate 60; Glucose 122 mg/dL (65-110); Lactate Dehydrogenase 572 U/L (313-618); Potassium 3.8 mmol/L (3.4-5.0); Sodium 138 mmol/L (137-145)
--- NOTE | 2021-07-26 12:18 | PM.IMPN ---
Progress Note: A&P Assessment and Plan (1) Acute respiratory failure with hypoxia: Code(s): J96.01 - Acute respiratory failure with hypoxia Status: Acute Assessment and Plan: Secondary to COVID-19. PE ruled out on CTA. Weaned from Airvo 60 liters/minute yesterday afternoon. Currently on room air Monitor overnight to ensure no desaturations given this brisk improvement Goal O2 sats 90% or above. Wean to goal Plan for discharge tomorrow if no further hypoxia Will proceed with home O2 eval (2) COVID-19: Code(s): U07.1 - COVID-19 Status: Acute Assessment and Plan: Symptom onset 07/09/2021 with positive PCR on 07/13/2021. CXR and CTA with extensive bilateral infiltrates Continue dexamethasone until discharge. Completed 5 doses of remdesivir on 07/25 Started on Baricitinib 07/22 due to increased O2 requirements. Continue 4 mg daily until discharge Supportive care to include bronchodilators, expectorants, incentive spirometry, antipyretics Supplemental O2 as above Monitor inflammatory markers intermittently Patient has not been vaccinated for COVID-19. States he would now like to get vaccinated. Follow-up outpatient for vaccine in 90 days (3) Acute renal insufficiency: Code(s): N28.9 - Disorder of kidney and ureter, unspecified Status: Acute Assessment and Plan: Likely pre renal given his poor oral intake Creatinine normalized following IV fluids. IV fluids discontinued. Encourage PO intake. Cr stable at 1.3 today Monitor renal function closely. Renally dose medications and avoid nephrotoxins (4) JULIUS (obstructive sleep apnea): Code(s): G47.33 - Obstructive sleep apnea (adult) (pediatric) Status: Acute Assessment and Plan: History of untreated JULIUS He is scheduled for a sleep study this upcoming week to obtain home CPAP which will now be rescheduled given acute illness Continue outpatient follow up Subjective Date/time seen: 07/26/21 12:18 Interval history: Date of service: 07/25/2021 Cristhian Vallejo III is a 46-year-old male with a history of JULIUS, currently untreated, and GERD who is seen in follow-up for COVID-19 pneumonia. The patient feels ?great? today. He is extremely eager to return home. He was weaned to room air this morning and is very eager to be discharged the hospital so he can spend time with his and get back to work. He denies shortness of breath. Denies cough. States he has been able to get up and walk around without any difficulties and without triggering any symptoms. He denies nausea, vomiting, fever, chills, dizziness, lightheadedness, weakness. He feels back to his usual state of health. Review of Systems Review of Systems: All systems reviewed & are unremarkable except as noted in HPI and below Exam Narrative: Mr. Vallejo is a well-nourished, well-appearing 46-year-old male who is lying semi recumbent in bed. He appears comfortable and is in NARD. Neuro: awake, alert and oriented x4, speech clear, no focal neuro deficits noted HEENMT: normocephalic, atraumatic, EOMI, sclerae anicteric Neck: supple, no lymphadenopathy Respiratory: Diminished breath sounds bilaterally, nonlabored breathing Cardio: regular rate, regular rhythm with S1-S2 Abdomen: nondistended, normoactive bowel sounds, soft, nontender to palpation Extremities: no edema, erythema, or tenderness to palpation, DP pulses 2+ bilaterally Skin: no rashes or lesions, warm and dry Psych: Appropriate mood and affect, judgment and insight intact Objective Data Vital Signs Vital Signs: Vital Signs - 24 hr 07/25/21 12:20 07/25/21 13:15 07/25/21 14:00 Temperature Pulse Rate 69 Respiratory Rate Blood Pressure Pulse Oximetry 98 96 07/25/21 16:00 07/25/21 20:00 07/25/21 21:31 Temperature 97.5 F L 97.1 F L Pulse Rate 72 67 Respiratory Rate 26 H 20 Blood Pressure 114/75 112/60 Pulse Oximetry 96 94 94
--- NOTE | 2021-07-26 13:37 | PCRCNOTE ---
HOME O2 EVAL COMPLETE, NO REQUIREMENTS.
[2021-07-27 06:00] VITALS: BP 126/66; PULSE 68; RESP 18; TEMP 36.2; O2SAT 94
[2021-07-27 08:00] VITALS: BP 129/80; PULSE 78; RESP 18; TEMP 35.8; O2SAT 95; O2SAT 98
--- NOTE | 2021-07-27 09:13 | PCNWS ---
Weekly nutritional screen. Patient screened in for 7 day length of stay. Patient is tolerating current diet with adequate intake. No weight loss reported. No nutritional needs at this time.
[2021-07-27] MEDS: guaiFENesin 12 HR 600 MG TABCR PO (09:29)
[2021-07-27] MEDS: ENOXAPARIN 40 MG/0.4 ML SYRINGE SUB-Q (09:29)
[2021-07-27] MEDS: FAMOTIDINE 20 MG TABLET PO (09:29)
[2021-07-27 09:44] LABS: Hematocrit 43.4 % (42.0-52.0); Hemoglobin 14.6 g/dL (14.0-18.0); Mean Corpuscular HGB Conc 33.6 g/dl (32-36); Mean Corpuscular Hemoglobin 31.4 pg (26-34); Mean Corpuscular Volume 93.3 fl (80-100); Mean Platelet Volume 9.6 fl (7.4-10.4); Platelet Count Result 322 k/mm3 (150-375); Red Blood Count 4.65 M/mm3 (4.6-6.20); Red Cell Distribution Width 12.3 % (11.5-14.5)
[2021-07-27 09:56] LABS: Alanine Aminotransferase 117 U/L (4-50); Albumin Level 3.7 g/dL (3.5-5.1); Alkaline Phosphatase 38 U/L (38-126); Aspartate Amino Transferase 67 U/L (17-59); Bilirubin,Total 0.8 mg/dL (0.2-1.3); Estimated CRCL calculation 110 ml/min; Estimated Glomerular Filt Rate > 60
[2021-07-27 10:22] LABS: Atypical Lymphocytes Present; Band Neutrophils Percent 6 % (0-6); Lymphocytes Absolute Manual 0.81 K/mm3 (1.1-4.5); Metamyelocytes Percent 1 %; Monocytes Absolute Manual 1.08 K/mm3 (0.1-0.90); Monocytes Percent Manual 12 % (3-9); Neutrophils Absolute Manual 7.02 K/mm3 (1.3-6.7); Neutrophils Percent Manual 72 % (46-73); Platelet Estimate Adequate (Adequate); Total Cells Counted 100
[2021-07-27] MEDS: BARICITINIB 2 MG TABLET 4 MG PO (11:04)
[2021-07-27 14:00] VITALS: BP 100/57; PULSE 67; RESP 16; TEMP 36.1; O2SAT 95
--- NOTE | 2021-07-27 14:49 | PM.DS ---
DS: Admitting Diagnosis Discharge Date 07/27/2021 Admitting Diagnosis Acute respiratory failure with hypoxia, COVID, acute renal insufficiency, JULIUS DS: Discharge Diagnosis Discharge Diagnosis (1) Acute respiratory failure with hypoxia: Code(s): J96.01 - Acute respiratory failure with hypoxia Status: Acute Assessment and Plan: Secondary to COVID-19. PE ruled out on CTA. Weaned from Airvo 60 liters/minute on 07/25/21 afternoon. Currently on room air for the last 24 hours. Monitored overnight last night to ensure no desaturations given his brisk improvement - and he did well. he is ready and anxious to get home today - feeling well . Goal O2 sats 90% or above. Wean to goal Plan for discharge today as no further hypoxia passed his home O2 eval yesterday (2) COVID-19: Code(s): U07.1 - COVID-19 Status: Acute Assessment and Plan: Symptom onset 07/09/2021 with positive PCR on 07/13/2021. CXR and CTA with extensive bilateral infiltrates Continue dexamethasone until discharge. continued on dexamethasone at discharge to finish out course. Started on Baricitinib 07/22 due to increased O2 requirements. Continued 4 mg daily until discharge. D/C'd at discharge. Supportive care to include bronchodilators, expectorants, incentive spirometry, antipyretics. Continued at discharge. Supplemental O2 as above, no longer needed. Passed Home oxygen study with no need. Monitor inflammatory markers intermittently: LDH 972 to 822 to 572 improving. Ferritin improved as well, 942 to 787. Patient has not been vaccinated for COVID-19. States he would now like to get vaccinated. Follow-up outpatient for vaccine in 30- 90 days with PCP . (3) Acute renal insufficiency: Code(s): N28.9 - Disorder of kidney and ureter, unspecified Status: Acute Assessment and Plan: Likely pre renal given his poor oral intake Creatinine normalized following IV fluids. IV fluids discontinued. Encourage PO intake. Cr stable at 1.3 , further improved to 1.2 today. Monitor renal function closely. Renally dose medications and avoid nephrotoxins (4) JULIUS (obstructive sleep apnea): Code(s): G47.33 - Obstructive sleep apnea (adult) (pediatric) Status: Acute Assessment and Plan: History of untreated JULIUS He is scheduled for a sleep study this upcoming week to obtain home CPAP which will now be rescheduled given acute illness Continue outpatient follow up see his PCP DS: Summary Hospital Course Hospital Course: He was diagnosed with COVID, required high levels of supplemental oxygen, started on dexamethasone and Baricitini, inhalers and Mucinex. He improved with time and monitoring. He was able to wean from his oxygen requirements. Has been off supplemental oxygen for 24 hours And passed his home oxygen study showing no need for oxygen. He is feeling much better and ready to go home today. Time Spent with Patient Time attestation: Total time spent providing and/or coordinating discharge services:60 minutes Exam Narrative: Mr. Vallejo is a well-nourished, well-appearing 46-year-old male who is lying semi recumbent in bed. He appears comfortable and is in NARD. Neuro: awake, alert and oriented x4, speech clear, no focal neuro deficits noted HEENMT: normocephalic, atraumatic, EOMI, sclerae anicteric Neck: supple, no lymphadenopathy Respiratory: Diminished breath sounds bilaterally, nonlabored breathing Cardio: regular rate, regular rhythm with S1-S2 Abdomen: nondistended, normoactive bowel sounds, soft, nontender to palpation Extremities: no edema, erythema, or tenderness to palpation, DP pulses 2+ bilaterally Skin: no rashes or lesions, warm and dry Psych: Appropriate mood and affect, judgment and insight intact DS: Data Data Completed and Pending Labs on day of discharge: Labs from last 24 hours 07/27/21 07/27/21 07/26/21 09:24 09:24 09:39 WBC 9.0 RBC
== END 2021-07-27 16:35 | disposition home or self-care (01) | DRG 177 ==
LOC: ANHED 07-21 02:18 → ANH3MEDSUR 07-21 03:19 → ANHIMU 07-22 00:45 → ANH3MEDSUR 07-25 19:56
PROVIDERS: Physician Assistant; Admitting Provider Internal Medicine; Emergency Provider Emergency Medicine; Visit Provider Nurse Practitioner
DX: U07.1 COVID-19 (principal); J96.01 Acute respiratory failure with hypoxia; J12.82 Pneumonia due to coronavirus disease 2019; G47.33 Obstructive sleep apnea (adult) (pediatric); K21.9 Gastro-esophageal reflux disease without esophagitis; N28.9 Disorder of kidney and ureter, unspecified; Z87.891 Personal history of nicotine dependence; Z28.21 Immunization not carried out because of patient refusal
CPT/HCPCS: 36415; 36600; 71045; 71275; 80053; 80076; 82375; 82565; 82728; 82805; 83050; 83615; 85025; 85380; 85610; 85730; 86140; 93005; 94002; 94618; 94667; 96361; 96374; 99285; A9270; G0378; J1100; J1650; J7030; Q9967

== ENCOUNTER 2022-09-25 05:47 | Emergency (ER) | payer OTHER, SELFPAY ==
[2022-09-25 05:50] VITALS: BP 148/90; PULSE 73; RESP 18; TEMP 36.9; O2SAT 100
--- NOTE | 2022-09-25 06:27 | ED.GENADULT ---
HPI - General Adult General Chief complaint: Wound/Laceration Stated complaint: laceration Time Seen by Provider: 09/25/22 06:20 History of Present Illness HPI narrative: Patient 47-year-old gentleman who presents to emergency department with chief complaint of right thumb laceration. Patient reports that he was using a mandolin last night around 8 PM and sliced his right thumb. The patient states that he thought the bleeding would stop throughout the night put bandages on it and when the bandages were soaked he attempted to change the bandages which pulled the flap of skin up. Patient reports that it started bleeding again and decided to come to the emergency department to see if he needed stitches. Related Data Allergies Allergy/AdvReac Type Severity Reaction Status Date / Time No Known Allergies Allergy Verified 07/20/21 23:59 Review of Systems Review of Systems: A 10 system review of systems was completed on the patient and is negative except for what is stated in the HPI. Nursing and ancillary documentation was reviewed. [facility] Past Medical History Medical History GERD (gastroesophageal reflux disease) JULIUS (obstructive sleep apnea) Family History Family History Father Diabetes mellitus Social History Social History Social History: The patient lives at home with his and 2 sons. He is independent in his daily activities. 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 He recently established care with a PCP though he cannot recall with whom. Dr. Lofton is listed as his PCP. He designates his , Emerita, as his surrogate decision maker. He would like to be a full code. Smoking packs per day: 1 Smoking cigarettes per day: 20.0 Years smoked: 17 Smoking pack-years: 17.00 Smoking status: Former smoker Tobacco type: cigarettes Alcohol use details: 1 alcoholic drink every 6 months Substance use: never Substance use type: does not use Living arrangements: with family Spiritual care concerns: No Course Vital Signs Vital signs: Vital Signs Temperature 36.9 C 09/25/22 05:50 Pulse Rate 73 09/25/22 05:50 Respiratory Rate 18 09/25/22 05:50 Blood Pressure 148/90 H 09/25/22 05:50 Pulse Oximetry 100 09/25/22 05:50 Oxygen Delivery Room Air 09/25/22 05:50 Temperature 36.9 C 09/25/22 05:50 Pulse Rate 73 09/25/22 05:50 Respiratory Rate 18 09/25/22 05:50 Blood Pressure 148/90 H 09/25/22 05:50 Pulse Oximetry 100 09/25/22 05:50 Oxygen Delivery Room Air 09/25/22 05:50 Procedures Laceration Laceration 1: Date: 09/25/22 Time: 06:52 Site: hand (Right thumb) Size (cm): 1.5 Description: flap Depth: simple, single layer Local Anesthetic: lidocaine 1% Amount of anesthesia used (mL): 3 Pre-repair: wound explored, irrigated and irrigated extensively ====== Skin Level ====== Skin layer closed with: nylon Size (cm): 4-0 Number of sutures: 3 Technique: simple, interrupted ====== Subcutaneous Layer ====== ====== Muscle Layer ====== ====== Tendon Layer ====== Medical Decision Making MDM Narrative Medical decision making narrative: Differential diagnosis includes laceration of thumb, vascular injury, Given the patient is still having significant bleeding from the wound even though it has been open for 10 hours the wound will be loosely approximated to provide hemostasis. Vital Signs Vital Signs: Vital Signs Temperature 36.9 C 09/25/22 05:50 Pulse Rate 73 09/25/22 05:50 Respiratory Rate 18 09/25/22 05:50 Blood Pressure 148/90 H 09/25/22 05:50 Pulse Oximetry 100 09/25/22 05:50 Oxygen Delivery Room Air 09/25/22 05:50 Temperature 36.9 C 09/25/22 05:50
[2022-09-25] MEDS: LIDOCAINE HCL 1% LOCAL INJ 20 ML VIAL 5 ML INFILTRATE (06:36)
[2022-09-25] MEDS: TETANUS,DIPHTHERIA,AC PERTUSSIS ADULT (0.5 ML) BOOSTRIX IM (07:00)
[2022-09-25 07:03] VITALS: BP 133/69; PULSE 70; RESP 18; TEMP 36.6; O2SAT 99
== END 2022-09-25 07:08 | disposition home or self-care (01) ==
PROVIDERS: Emergency Provider Emergency Medicine; PCP Registered Nurse
DX: S61.011A Laceration without foreign body of right thumb without damage to nail, initial encounter (principal); Z87.891 Personal history of nicotine dependence; Z23 Encounter for immunization; W26.8XXA Contact with other sharp object(s), not elsewhere classified, initial encounter
CPT/HCPCS: 12001; 90471; 90715; 99282

== ENCOUNTER 2023-11-18 07:53 | Emergency (ER) | payer OTHER, SELFPAY ==
--- NOTE | ~2023-11-18 | XR_ITS ---
EXAMINATION: [id number] DATE: 11/18/2023 08:35 INDICATION: Anterior left rib pain. Fall. TECHNIQUE: A frontal view of the chest and 2 views on 4 radiographs of the left ribs were obtained. COMPARISON: Chest single view 07/21/2021 FINDINGS: There is no pneumonia, pleural effusion, or pneumothorax. The heart size is normal. There i s a fracture of anterior left seventh rib. IMPRESSION: 1. Fracture of anterior left seventh rib. Reviewed, dictated and finalized at location A.
[2023-11-18 07:56] VITALS: BP 134/94; PULSE 87; RESP 18; TEMP 36.3; O2SAT 94
[2023-11-18] MEDS: KETOROLAC 30 MG/ML VIAL (*BKC) IM (08:53)
[2023-11-18] MEDS: LIDOCAINE 5% PATCH 1 PATCH TRANSDERM (08:53)
--- NOTE | 2023-11-18 08:58 | ED.FALL ---
HPI - Fall General Chief Complaint: Fall Stated Complaint: fall, rib pain Time Seen by Provider: 11/18/23 08:13 History of Present Illness HPI Narrative: Patient fell while walking his dogs a few days ago, onto his left ribs, since then he has had pain to the left rib, generally is fine throughout the time he is awake but when he tries to go to sleep is quite painful especially when he lays on it. Worse when he takes deep breath Related Data Allergies Allergy/AdvReac Type Severity Reaction Status Date / Time No Known Allergies Allergy Verified 07/20/21 23:59 Review of Systems Review of Systems: All systems reviewed & are unremarkable except as noted in HPI and below PMFSH Past Medical History Medical History GERD (gastroesophageal reflux disease) JULIUS (obstructive sleep apnea) Family History Family History Father Diabetes mellitus Social History Social History Social History: The patient lives at home with his and 2 sons. He is independent in his daily activities. 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 He recently established care with a PCP though he cannot recall with whom. Dr. Lofton is listed as his PCP. He designates his , Emerita, as his surrogate decision maker. He would like to be a full code. Smoking packs per day: 1 Smoking cigarettes per day: 20.0 Years smoked: 17 Smoking pack-years: 17.00 Smoking status: Former smoker Tobacco type: cigarettes Alcohol use details: 1 alcoholic drink every 6 months Substance use: never Substance use type: does not use Living arrangements: with family Spiritual care concerns: No Exam Narrative: EXAMINATION OF ORGAN SYSTEMS/BODY AREAS: Constitutional: Vital signs per nursing GENERAL:[No acute distress, non-toxic appearing.] HEAD: Normal with no signs of head trauma. EYES: EOMI, conjunctiva normal ENT: Hearing grossly intact LUNGS: Nonlabored breathing. HEART: [Regular rate and rhythm]. Severe pinpoint tenderness to left anterior lower rib ABD: [Soft], nontender palpation EXT: Normal range of motion SKIN: [No rashes or lesions.] NEURO: [Alert and oriented x 3. No gross focal sensory or strength deficits.] PSYCH: Normal affect Course Vital Signs Vital signs: Vital Signs Temperature 97.4 F L 11/18/23 07:56 Pulse Rate 87 11/18/23 07:56 Respiratory Rate 18 11/18/23 07:56 Blood Pressure 134/94 H 11/18/23 07:56 Pulse Oximetry 94 11/18/23 07:56 Oxygen Delivery Room Air 11/18/23 07:56 Temperature 97.4 F L 11/18/23 07:56 Pulse Rate 87 11/18/23 07:56 Respiratory Rate 18 11/18/23 07:56 Blood Pressure 134/94 H 11/18/23 07:56 Pulse Oximetry 94 11/18/23 07:56 Oxygen Delivery Room Air 11/18/23 07:56 MDM - Fall MDM Narrative Medical decision making narrative: Patient presenting with left rib pain after injury 5 days ago, he is otherwise well appearing, x-rays obtained on my independent interpretation no pneumothorax. There is fracture of anterior left 7th rib per radiology. Patient given pain medications, incentive spirometer with instructions how to use it, and return precautions, and follow-up to primary care doctor. Patient agreeable to the plan Discharge Plan Discharge Clinical Impression: Closed rib fracture Patient Disposition: Home, Self-Care Condition: Stable Instructions: Antibiotic Form, Rib Fracture (ED) Additional Instructions: Please follow-up with your doctor, take medications as prescribed, come back to the hospital if you have any worsening issues. Try not to do any heavy lifting until you are healed. Prescriptions: New methocarbamol 750 mg tablet 750 mg PO TID PRN (Reason: muscle spasm) Qty: 30 0RF lidocaine 5 % adhesive patch,medicated 1 patch topical DAILY Qty:
== END 2023-11-18 09:06 | disposition home or self-care (01) ==
PROVIDERS: Emergency Provider Emergency Medicine; PCP Registered Nurse
DX: S22.32XA Fracture of one rib, left side, initial encounter for closed fracture (principal); W18.30XA Fall on same level, unspecified, initial encounter; K21.9 Gastro-esophageal reflux disease without esophagitis; G47.33 Obstructive sleep apnea (adult) (pediatric); Z87.891 Personal history of nicotine dependence
CPT/HCPCS: 71101; 96372; 99283; A9270; J1885